=== PATIENT | female | born 2000 | race African-American/Black ===

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

== ENCOUNTER 2018-01-30 16:52 | Emergency (ER) | payer OTHER ==
[~2018-01-30] VITALS: Ht 172.7 cm; Wt 95.7 kg
[2018-01-30 16:57] VITALS: BP 131/78; Ht 172.7 cm; Wt 95.7 kg
== END 2018-01-30 20:09 | disposition home or self-care (01) ==
LOC: ED 16:52
DX: S00.83XA Contusion of other part of head, initial encounter (principal); J45.909 Unspecified asthma, uncomplicated; Y04.2XXA Assault by strike against or bumped into by another person, initial encounter; Y93.89 Activity, other specified; Y92.89 Other specified places as the place of occurrence of the external cause; Y99.8 Other external cause status

== ENCOUNTER 2018-03-27 12:17 | Emergency (ER) | payer OTHER ==
[~2018-03-27] VITALS: Ht 172.7 cm; Wt 92.1 kg
[2018-03-27 12:19] VITALS: Ht 172.7 cm; Wt 92.1 kg
[2018-03-27 13:24] VITALS: BP 125/82
== END 2018-03-27 13:24 | disposition home or self-care (01) ==
LOC: ED 12:17
DX: J06.9 Acute upper respiratory infection, unspecified (principal)

== ENCOUNTER 2020-04-25 11:13 | Emergency (ER) | payer OTHER ==
[~2020-04-25] VITALS: Ht 172.7 cm; Wt 101.6 kg
[2020-04-25 11:29] VITALS: BP 128/85; Ht 172.7 cm; Wt 101.6 kg
== END 2020-04-25 12:53 | disposition left against medical advice (07) ==
LOC: ED 11:13
DX: Z53.21 Procedure and treatment not carried out due to patient leaving prior to being seen by health care provider (principal)